=== PATIENT | female | born 1945 | race Caucasian/White ===

== ENCOUNTER 2021-01-22 14:31 | Inpatient (IN) | payer MEDICARE, SELFPAY ==
[2021-01-22] VITALS (8 sets, daily range): BP systolic 157–189; BP diastolic 73–99; PULSE 55–60; RESP 14–17; TEMP 36.2–36.9; O2SAT 97–99; BMI 27.4; BMI 27.6
--- NOTE | 2021-01-22 14:46 | PC.NURSE ---
provider spoke with pt in waiting room. pt states she is having constant chest tightness and a BAI. Ming RUGGIERO asked me to call for her a room in the ER. pt taken to room 7 and transferred to Sharla Lechuga.
--- NOTE | 2021-01-22 14:50 | ECG_ITS ---
APPROVED REPORT Exam: Resting ECG HR:58 bpm ECG Measurements Heart Rate 58 AXES IN 162 P 46 QRSd 84 QRS 8 QT 496 T 89 QTc 486 Conclusion Sinus bradycardia with premature atrial complexes Prolonged QT Abnormal ECG Electronically signed by : Davonte Morataya, 01/23/2021 07:27:21
--- NOTE | 2021-01-22 15:01 | HMH.EDGENADL ---
ED Disposition Clinical Impression: Non-STEMI (non-ST elevated myocardial infarction) Disposition: Admitted As Inpatient Condition on Discharge: Good - Critical Care Critical Care Time: No Attestation: On 01/22/21, the high probability of a clinically significant, sudden or life threatening deterioration of the following system(s) required my full and direct attention, intervention and personal management. The time I documented below is in addition to time spent performing reported procedures but includes the following listed in this critical care notation. Medical Decision Making - Jose Inquiry Pt receiving controlled substance: No Vital Signs: 01/22/21 14:56 01/22/21 15:00 01/22/21 15:31 Temperature 97.2 F L Temperature Source Oral Pulse Rate 59 L Pulse Rate [Right Radial] 59 L Respiratory Rate 16 16 14 Blood Pressure 184/89 H 175/74 H Blood Pressure [Right Arm] 189/89 H Blood Pressure Mean 123 129 Blood Pressure Mean [Right Arm] 122 Blood Pressure Source [Right Arm] Automatic Cuff Blood Pressure Position [Right Arm] Sitting 02 Sat by Pulse Oximetry 97 97 Oxygen Delivery Method Room Air Room Air 01/22/21 16:06 Temperature Temperature Source Pulse Rate 55 L Pulse Rate [Right Radial] Respiratory Rate 14 Blood Pressure 183/95 H Blood Pressure [Right Arm] Blood Pressure Mean 124 Blood Pressure Mean [Right Arm] Blood Pressure Source [Right Arm] Blood Pressure Position [Right Arm] 02 Sat by Pulse Oximetry Oxygen Delivery Method - Lab Data Lab Results 01/22/21 14:58: WBC 6.2, RBC 4.60, Hgb 13.8, Hct 40.8, MCV 88.6, MCH 30.0, MCHC 33.8, RDW 14.0, Plt Count 180, MPV 8.8, Neut % (Auto) 78.2, Lymph % (Auto) 12.3, [place] % (Auto) 7.8, Eos % (Auto) 1.4, Baso % (Auto) 0.2, Neut # (Auto) 4.9, Lymph # (Auto) 0.8, [place] # (Auto) 0.5, Eos # (Auto) 0.1, Baso # (Auto) 0.0 01/22/21 14:58: Sodium 141, Potassium 3.7, Chloride 104, Carbon Dioxide 27, Anion Gap 13.7, BUN 9, Creatinine 0.60, Estimated Creat Clear 54, Estimated GFR 97, Est GFR ( Amer) 117, Glucose 255 H, Calcium 9.3, Troponin I 7.88 H 01/22/21 15:35: SARS-CoV-2 (PCR) Not detected, Influenza A Untype (PCR) Not detected, Influenza Type B (PCR) Not detected Result diagrams: 01/22/21 14:58 01/22/21 14:58 Orders (Tests/Meds): ED MEDICATIONS Generic Name Dose Route Start Last Admin Trade Name Freq PRN Reason Stop Dose Admin Acetaminophen 650 mg 01/22/21 16:09 Acetaminophen 325mg Tab PO 02/21/21 16:08 Q4HP PRN Fever or Mild Pain Enoxaparin Sodium 75 mg 01/23/21 06:00 Enoxaparin 80mg/0.8ml Syringe 1 mg/kg (75 mg) 02/22/21 05:59 SQ Q12H [facility] Insulin Human Lispro 0 unit 01/22/21 16:30 01/22/21 17:44 Humalog 100 Units/Ml 3ml Vial (Ssi) SQ 02/21/21 16:29 2 unit ACHS [facility] Administration Protocol Lisinopril 5 mg 01/23/21 09:00 Lisinopril 5mg Tablet PO 02/22/21 08:59 DAILY [facility] Nitroglycerin 1 gm 01/22/21 22:00 Nitroglycerin 1 Gm Ointment TD 02/21/21 15:59 Q6H [facility] Non-Formulary Medication 0.5 mg 01/23/21 09:00 Fingolimod Hcl [Gilenya] PO 02/22/21 08:59 DAILY [facility] Ondansetron HCl 4 mg 01/22/21 16:09 Ondansetron 4mg/2ml Vial IV 02/21/21 16:08 Q8HP PRN Nausea Discontinued Medications Generic Name Dose Route Start Last Admin Trade Name Freq PRN Reason Stop Dose Admin Aspirin 324 mg 01/22/21 15:06 01/22/21 15:09 Aspirin 81mg Chewable Tablet PO 01/22/21 15:07 324 mg ONCE ONE Administration Enoxaparin Sodium 75 mg 01/22/21 15:45 01/22/21 15:58 Enoxaparin 100mg/Ml Syringe 1 mg/kg (75 mg) 01/22/21 21:00 75 mg SQ Administration Q12H [facility] Enoxaparin Sodium 75 mg 01/23/21 06:00 Enoxaparin 80mg/0.8ml Syringe 1 mg/kg (75 mg) 02/22/21 05:59 SQ Q12H [facility] Nitroglycerin 1 gm 01/22/21 16:00 01/22/21 15:59 Nitroglycerin 1 Gm Ointment TD 02/21/21 15:59 1 gm Q6H [facility] Administration
--- NOTE | 2021-01-22 15:02 | PC.NURSE ---
JAKE HALE speaking with Dr. Meadows.
--- NOTE | 2021-01-22 15:03 | XR_ITS ---
PROCEDURE: XR CHEST PORTABLE CLINICAL HISTORY: chest pain COMPARISON: No exams were available for comparison FINDINGS: The cardiomediastinal silhouette and pulmonary vascularity are within normal limits. The lungs are clear without infiltrates, suspicious nodules, or pleural effusions. Surgical clips are present in the left axilla. No acute bony findings. IMPRESSION: No acute findings. Dictated by: Josue Up MD 01/22/2021 15:27 Josue Up MD in [facility] 01/22/2021 15:27
[2021-01-22 15:12] LABS: Chloride 104 mmol/L (98-107); Potassium 3.7 mmoL/L (3.5-5.1); Sodium 141 mmol/L (136-145)
[2021-01-22 15:15] LABS: Anion Gap 13.7 mEq/L (5-15); Blood Urea Nitrogen 9 mg/dl (7-17); Calcium 9.3 mg/dl (8.4-10.2); Carbon Dioxide 27 mmol/L (22.0-30.0); Creatinine Clearance Estimated 54 mL/min (50-200); Estimated Glomerular Filt Rate 97 ml/min (>60); GFR (African American) 117 ML/MIN (>60); Glucose 255 mg/dl (74-100)
[2021-01-22 15:29] LABS: Basophils % 0.2 % (0.1-2.0); Eosinophils # 0.1 K/mm3 (0.0-0.4); Eosinophils % 1.4 % (0.1-12.0); Hematocrit 40.8 % (37.0-47.0); Hemoglobin 13.8 g/dL (12.2-16.2); Lymphocytes # 0.8 K/mm3 (0.7-4.5); Lymphocytes % 12.3 % (10-50); Mean Corpuscular HGB Conc 33.8 g/dL (31.8-35.4); Mean Corpuscular Volume 88.6 fl (81-99); Mean Platelet Volume 8.8 fl (7.4-10.4); Monocytes # 0.5 K/mm3 (0.1-1.0); Monocytes % 7.8 % (1.7-9.3); Neutrophils # 4.9 K/mm3 (1.8-7.8); Neutrophils % 78.2 % (37.0-80.0); Platelet Count 180 K/mm3 (142-424); Troponin I 7.88 ng/ml (0.00-0.034); White Blood Count 6.2 K/mm3 (4.8-10.8)
--- NOTE | 2021-01-22 15:29 | PC.NURSE ---
Critical trop 7.88 called at this time per lab, read back and verified with mariano padilla.
--- NOTE | 2021-01-22 15:31 | PC.NURSE ---
Dr. vázquez paged at this time.
--- NOTE | 2021-01-22 15:35 | PC.NURSE ---
Calling Dr. Garcia office
--- NOTE | 2021-01-22 15:49 | PC.NURSE ---
speaking with Dr. Garcia
[2021-01-22 15:54] LABS: Coronavirus 19, PCR Not Detected (NotDetected); Influenza A, PCR Not Detected (NotDetected); Influenza B, PCR Not Detected (NotDetected)
--- NOTE | 2021-01-22 15:54 | CA_ITS ---
APPROVED REPORT EXAM: Comprehensive 2D, Doppler, and color-flow Echocardiogram Wrapper Layer: Christi Rodriguez RVT Ht: 5 ft 4 in Wt: 160lbs BSA: 1.78 BP: 189/89 mmHg Indications: nstemi,htn,dm,chf,elevated trop,fatigue 2D Dimensions IVSd 1.24 cm F: 0.6-1.0 LVEF (Visual) 50.30 % PWd 0.62 cm F: 0.6 - 1.0 LA Volume 58.60 mL LVDd 4.19 cm F: 3.9 - 5.3 LA Volume Index 32.92 mL/m2 (M/F) 16-34 LVDs 3.13 cm F: 2.2 - 3.5 LVOT 2.36 cm (M/F) 1.5-2.5 M-Mode Dimensions LA Diam 4.90 cm (1.9-4.0) Ao Diam 3.16 cm (2.0-3.7) TAPSE 2.14 (<1.7) LV Diastology E Decel Time 117.00 (160-240 msec) E/A Ratio 0.9 MED E' 5.10 (< 7 cm/sec) E'/MED E' Ratio 13.78 (>14) LAT E' 4.70 (<10 cm/sec) E/LAT E' Ratio 14.96 (>14) Aortic Valve AO Peak GR. 4.20 mmHg AO VTI 28.94 (18-25 cm) Mitral Valve MV E Max Anjel. 70.00 (40-130 cm/s) MV A Velocity 75.00 (40-130 cm/s) E/A Ratio 0.94 MV Decel. Time 117.00 (160-240 ms) MV PHT 34.00 ms Pulmonary Valve PV Peak Velocity 66.00 (50-150 cm/s) Tricuspid Valve TR P. Velocity 386.00 cm/s RAP Estimate 10.00 mmHg RVSP 69.60 mmHg Left Ventricle Left atrium is mildly enlarged, left ventricle is normal size, mild concentric left ventricular hypertrophy, visually estimated ejection fraction 50% with moderate hypokinesis involving the basal septum and inferior basal wall. Grade 2 diastolic dysfunction seen with tissue Doppler evidence of raise left atrial pressure. Right Ventricle Right atrium and right ventricle mildly enlarged with normal contractility. Aortic Valve Aortic valve is minimally thickened and calcified without Doppler evidence of aortic stenosis or aortic insufficiency. Mitral Valve Mitral valve leaflets are minimally thickened, there is moderate mitral regurgitation. Tricuspid Valve Tricuspid valve grossly normal, there is mild tricuspid regurgitation, calculated right ventricular systolic pressure 69 mmHg. Pulmonic Valve Pulmonic valve is poorly visualized. Great Vessels Aortic root is normal size. Inferior vena cava is mildly dilated. Pericardium No significant pericardial effusion noted Conclusion 1. Biatrial enlargement, normal left ventricular size, mild concentric left ventricular hypertrophy, visually estimated ejection fraction 50% with segmental wall motion abnormality described above, grade 2 diastolic dysfunction seen with tissue Doppler evidence of raise left atrial pressure. 2. Moderate mitral and mild tricuspid regurgitation, calculated right ventricular systolic pressure 69 mmHg. 3. Inferior vena cava is dilated, no significant pericardial effusion noted. Electronically signed by : Esteban Alejandro, 01/23/2021 09:06:46
--- NOTE | 2021-01-22 15:54 | PC.NURSE ---
Notified CV lab of echo
--- NOTE | 2021-01-22 16:03 | PC.NURSE ---
Notified registration of admission
--- NOTE | 2021-01-22 16:14 | PC.NURSE ---
CV lab staff at
--- NOTE | 2021-01-22 16:45 | PC.NURSE ---
report given to dorcas mcnulty rn on second floor at this time
[2021-01-22 17:53] LABS: POC Glucose,Bedside 164 (70-110)
--- NOTE | 2021-01-22 18:09 | PC.NURSE ---
PT IS AOX4, ABLE TO MAKE NEEDS KNOWN TO STAFF. PT FAMILY APPROACHED THIS RN STATING THAT HE BELIEVED THE PT WAS HAVING CHEST PAIN. THIS RN QUESTIONED PT AND SHE DENIED MULTIPLE TIMES THAT SHE WAS NOT HAVING CHEST PAIN.
[2021-01-22 18:48] LABS: Troponin I 7.49 ng/ml (0.00-0.034)
--- NOTE | 2021-01-22 18:52 | PC.NURSE ---
CRITICAL TROPONIN REPORTED FROM LAB. PT NAME AND VERIFIED. CRITICAL LAB REPORTED TO MD CLIFFORD. NO NEW ORDERS.
[2021-01-22 21:35] LABS: Troponin I 6.87 ng/ml (0.00-0.034)
[2021-01-23] VITALS (37 sets, daily range): BP systolic 112–173; BP diastolic 61–108; PULSE 53–130; RESP 15–22; TEMP 36.5–37.6; O2SAT 93–100; BMI 28.0
--- NOTE | 2021-01-23 | IR_ITS ---
APPROVED REPORT Patient Location: Inpatient [facility] Bods Developer: YARY Baer RT (R) PROCEDURES Left heart catheterization Left ventriculogram Selective coronary angiogram Drug-eluting stent deployment to the proximal and mid LAD in a contiguous manner Angioplasty of the large first diagonal artery INDICATION Acute non-ST elevation myocardial infarction, Coronary artery disease Informed consent was obtained prior to the procedure. COMPLICATIONS None Estimated Blood Loss: Less than 10 mls TECHNIQUE One percent lidocaine used to anesthetize the right anterior aspect of the wrist. The right radial artery was accessed via the Seldinger technique. A 6 [place]bourg[place] sheath was placed in the right radial artery. 2.5 mg of verapamil, 800 mcg of nitroglycerin, 1mg Lidocaine and 5000 U Heparin were given through the arterial sheath. The [place] catheter was also used to perform left heart catheterization, left ventriculogram and selective coronary angiogram. At the end of the diagnostic angiogram therapeutic heparin was administered giving a therapeutic ACT. A Choice PT extra-support wire was placed in the first diagonal artery and a Choice PT extra-support wire was placed in the distal LAD. A 2.5 x 12 mm balloon was advanced and upon inflation that watermelon seated backward. After the balloon was deployed it would not make it beyond the severe stenosis again therefore a fresh 2.5 x 20 mm balloon was then advanced. The same watermelon seeding event occurred with the balloon receding backward. Once again the balloon would not or could not be advanced therefore a another fresh 2.5 x 12 mm balloon was then advanced this time distal to the first diagonal artery. The initial inflations were proximal to the first diagonal artery in an attempt to spare crossing this vessel however it was apparent this would not be the case therefore the diagonal artery was crossed/jailed. A guide liner was in place in order to provide additional support. A 2.5 x 12 mm resolute Royal stent was placed across the large diagonal artery and deployed at 22 becca reducing the critical stenosis. An additional 3 mm x 26 mm resolute Royal stent was then deployed at 22 becca proximal to the stent yet still overlapping the first stent placed. Excellent angiographic results were obtained. The wire was pulled back out of the LAD and placed into the first diagonal artery where a 2 mm x 12 mm noncompliant balloon was deployed at 20 becca for 1 minute opening the struts and restoring excellent angiographic appearance to the first diagonal artery. At the end of the procedure the apparatus was removed the sheath was removed good hemostasis was achieved using TR banding patient was transferred to the postop holding in stable condition. To me to flow was present at the beginning of the procedure with KAT-3 flow at the end of the procedure. Following revascularization of the LAD patient converted back into sinus rhythm ANGIOGRAPHIC RESULTS The left main artery Normal The left anterior descending artery Has a proximal calcified concentric 90% stenosis. There is an additional 30% mid LAD stenosis.. A large first diagonal artery has an ostial 30% calcified stenosis The circumflex artery Gives rise to a moderate to large ramus intermedius which has mild mid vessel 10% stenosis along a tortuous bend. The circumflex artery itself is nondominant with mild mid vessel 10 to 20% stenosis The right coronary artery Is a large dominant vessel with proximal 30% stenosis mid vessel 30 and 40% stenoses. Posterior lateral branch has mid vessel 30% stenosis with a posterior descending artery has proximal 10 to 20% stenosis The QUEEN ventriculogram reveals Dilated ventricle with lar
[2021-01-23 01:39] LABS: POC Glucose,Bedside 210 (70-110)
--- NOTE | 2021-01-23 02:14 | ECG_ITS ---
APPROVED REPORT Exam: Resting ECG HR:132 bpm ECG Measurements Heart Rate 132 AXES QRSd 88 QRS -1 QT 288 T 89 QTc 426 Conclusion Atrial fibrillation with rapid ventricular response ST & T wave abnormality, consider lateral ischemia or digitalis effect Abnormal ECG Electronically signed by : Davonte Morataya, 01/23/2021 07:27:14
--- NOTE | 2021-01-23 04:02 | PC.NURSE ---
Care assumed by this nurse at 0254. Pt is currently resting in bed. Amiodarone bolus and continuous infusion ordered by MD Meadows after EKG was obtained and pt noted to be Afib w/ RVR. EKG read by MD Ceballos. Orders were carried out. Amiodarone is currently infusing @ 1mg/min, 33.3 ml/hr. Nightwatch, classification clerk pharmacy was consulted. Pt remains in afib at this time. BP is 140/74. HR ranges from 100s-120s. Pt remains on RA with O2 sats in upper 90s. Pt is NPO for heart cath in AM. Family at bedside. Will continue to monitor.
[2021-01-23 05:52] LABS: POC Glucose,Bedside 197 (70-110)
[2021-01-23 07:03] LABS: Basophils # 0.1 K/mm3 (0-0.2); Basophils % 0.8 % (0.1-2.0); Eosinophils # 0.1 K/mm3 (0.0-0.4); Eosinophils % 1.5 % (0.1-12.0); Hemoglobin 13.1 g/dL (12.2-16.2); Lymphocytes # 1.1 K/mm3 (0.7-4.5); Lymphocytes % 12.8 % (10-50); Mean Corpuscular HGB Conc 32.8 g/dL (31.8-35.4); Mean Corpuscular Hemoglobin 29.1 pg (27.0-31.2); Mean Corpuscular Volume 88.7 fl (81-99); Mean Platelet Volume 8.9 fl (7.4-10.4); Monocytes # 0.7 K/mm3 (0.1-1.0); Monocytes % 7.6 % (1.7-9.3); Neutrophils # 6.9 K/mm3 (1.8-7.8); Neutrophils % 77.4 % (37.0-80.0); Platelet Count 184 K/mm3 (142-424); Red Blood Count 4.51 M/mm3 (4.20-5.40); Red Cell Distribution Width 14.2 % (11.5-17.5); White Blood Count 8.9 K/mm3 (4.8-10.8)
[2021-01-23 07:09] LABS: Blood Urea Nitrogen 3 mg/dl (7-17); Calcium 9.1 mg/dl (8.4-10.2); Carbon Dioxide 27 mmol/L (22.0-30.0); Chloride 104 mmol/L (98-107); Creatinine Clearance Estimated 55 mL/min (50-200); Estimated Glomerular Filt Rate 97 ml/min (>60); GFR (African American) 117 ML/MIN (>60); Glucose 219 mg/dl (74-100); Sodium 139 mmol/L (136-145)
--- NOTE | 2021-01-23 08:16 | HMH.HP ---
*Admission Date: 01/22/21 *Chief complaint: Chest pain *History of present illness: 75-year-old female with history of diabetes presented to the emergency department with her family with episodes of chest tightness and reports that the patient seemed weak and fatigued. Patient is a reluctant historian as she does not want to be in the hospital. Her sons are at bedside. They noticed something was wrong initially by speaking with the patient on January 20 and on January 21 had a chance to be around the patient and noted she was weaker and fatigued. She apparently at some point and mentions some chest tightness. She was brought to the ER on January 22 in the afternoon. Patient had abnormal EKG with troponin of seven. The ER physician contacted cardiology service and patient was admitted on Brilinta and Lovenox with plan for left heart catheterization this morning. Overnight patient developed atrial fibrillation with rapid ventricular response. Dr. Meadows was contacted and patient was placed on an amiodarone drip. Echocardiogram was performed late yesterday afternoon with preliminary reading of ejection fraction of 50 to 55%. Past medical history significant for diabetes which has been controlled and multiple sclerosis. [facility] History I have reviewed the patient's past medical history: Yes Medical History: Reports:: Diabetes Mellitus Type 2 *Have you ever received a pneumonia vaccine?: No *Have you received a flu vaccine this season?: No Other Surgeries: Yes: Other (Multiple sclerosis) - *Social History Last grade of school completed: Advanced degree Smoking Status: Never smoker Alcohol Intake: never Substance Use Type: denies use *Occupational Status:: retired Housing: house Household Members: none *Travel in the last 8 weeks: None Family Hx:: Non-contributory Review of Systems - Constitutional Denies body ache(s) - Eyes Denies blurry vision - ENT Denies abnormal hearing - *Cardiovascular Reports chest pain at rest - *Respiratory Reports shortness of breath with activity - *Gastrointestinal Denies belching - *Genitourinary Denies painful urination - *Musculoskeletal Denies joint pain - *Neurologic Reports abnormal walking, Reports weakness Meds Home Medications Medication Instructions Recorded Confirmed Type Fingolimod HCl [Gilenya] 0.5 mg PO DAILY 01/22/21 01/22/21 History Glimepiride 1 mg PO DAILY 01/22/21 01/22/21 History lisinopriL [Lisinopril] 5 mg PO DAILY 01/22/21 01/22/21 History Allergies Allergy/AdvReac Type Severity Reaction Status Date / Time No Known Allergies Allergy Unverified 01/22/21 14:56 Exam Vital signs and Labs for Last 24 Hours: Temp Pulse Resp BP Pulse Ox 98.3 F 116 H 20 133/72 93 L 01/23/21 08:00 01/23/21 06:00 01/23/21 06:00 01/23/21 06:00 01/23/21 06:00 Laboratory Results - last 24 hr 01/22/21 14:58: WBC 6.2, RBC 4.60, Hgb 13.8, Hct 40.8, MCV 88.6, MCH 30.0, MCHC 33.8, RDW 14.0, Plt Count 180, MPV 8.8, Neut % (Auto) 78.2, Lymph % (Auto) 12.3, [place] % (Auto) 7.8, Eos % (Auto) 1.4, Baso % (Auto) 0.2, Neut # (Auto) 4.9, Lymph # (Auto) 0.8, [place] # (Auto) 0.5, Eos # (Auto) 0.1, Baso # (Auto) 0.0 01/22/21 14:58: Sodium 141, Potassium 3.7, Chloride 104, Carbon Dioxide 27, Anion Gap 13.7, BUN 9, Creatinine 0.60, Estimated Creat Clear 54, Estimated GFR 97, Est GFR ( Amer) 117, Glucose 255 H, Calcium 9.3, Troponin I 7.88 H 01/22/21 15:35: SARS-CoV-2 (PCR) Not detected, Influenza A Untype (PCR) Not detected, Influenza Type B (PCR) Not detected 01/22/21 17:39: POC Glucose 164 H 01/22/21 18:15: Troponin I 7.49 H 01/22/21 20:10: POC Glucose 210 H 01/22/21 21:09: Troponin I 6.87 H 01/23/21 05:33: POC Glucose 197 H 01/23/21 06:42: WBC 8.9 D, RBC 4.51, Hgb 13.1, Hct 40.0, MCV 88.7, MCH 29.1, MCHC 32.8, RDW 14.2, Plt Count 184, MPV 8.9, Neut % (Auto) 77.4, Lymph % (Auto) 12.8, [place] % (Auto) 7.6, Eos % (Auto) 1.5, Baso % (Auto) 0.8, Neut # (Auto) 6.9, Lymph # (Auto)
--- NOTE | 2021-01-23 09:00 | PC.NURSE ---
Amio gtt decreased to 0.5mg @ 0900
--- NOTE | 2021-01-23 09:05 | HMH.PHAVTE ---
[facility] Pharmacy VTE Monitoring - Patient Demographics Admission date: 01/23/21 Report Date: 01/23/21 Time: 09:05 Allergies/Adverse Reactions: Patient Allergies No Known Allergies Allergy (Unverified 01/22/21 14:56) Height: 1.63 m Weight: 74.531 kg Patient Problems: Current Active Problems Non-STEMI (non-ST elevated myocardial infarction) (Acute) Atrial fibrillation with RVR (Acute) Diabetes mellitus type 2 in nonobese (Acute) - VTE Risk Labs: VTE Related Lab Results Hgb 13.1 g/dL (12.2-16.2) 01/23/21 06:42 Hct 40.0 % (37.0-47.0) 01/23/21 06:42 Plt Count 184 K/mm3 (142-424) 01/23/21 06:42 BUN 3 mg/dl (7-17) L D 01/23/21 06:42 Creatinine 0.60 mg/dl (0.52-1.04) 01/23/21 06:42 Estimated Creat Clear 55 mL/min (50-200) 01/23/21 06:42 - Prophylaxis Types of VTE Prophylaxis: TEDS Knee High Pharmacologic Type: Other (MERVIN HOSE ORDERED, XARELTO TO START THIS EVENING)
--- NOTE | 2021-01-23 09:49 | PC.NURSE ---
pt to cath lab manager with Ulises Pires RN via wheelchair. Amio gtt @ 0.5mg/hr continues via PIV
[2021-01-23 10:57] LABS: CATHL Activated Clotting Time 292 SEC (74-125)
--- NOTE | 2021-01-23 11:27 | PC.NURSE ---
received report from Ulises Pires RN
--- NOTE | 2021-01-23 11:35 | PC.NURSE ---
pt back from cathlab. Right radial site CDI with radial band in place. Pt is answering questions appropriately but continues to be drowsy. Sinus radha on tele.
[2021-01-23 12:10] LABS: POC Glucose,Bedside 187 (70-110)
--- NOTE | 2021-01-23 12:32 | PC.NURSE ---
Sinus radha with rate 48-56. Amio gtt currently @ 0.5mg/hr. Contacted Dr. Meadows, who ordered to continue Amio gtt.
[2021-01-23 17:32] LABS: POC Glucose,Bedside 227 (70-110)
--- NOTE | 2021-01-23 17:34 | PC.NURSE ---
Addendum entered by Alejandra Valdez RN 01/24/21 08:12: should read: pt is NOW back in Afib Original Note: pt is not back in Afib. Tele strip printed out and is on the chart. Amio gtt continues @ 0.5mg/hr and will be complete @ 0300.
--- NOTE | 2021-01-23 18:39 | PC.NURSE ---
updated Dr. Meadows that pt is now back in Afib rate 120s with BP 160/106 (128). New orders received for the following: Amiodarone 400mg BID po, Digoxin 0.5mg IVP x 1 dose then 0.125mg po daily and to give po dose tonight. [facility]
[2021-01-23 22:54] LABS: POC Glucose,Bedside 198 (70-110)
[2021-01-24] VITALS (16 sets, daily range): BP systolic 106–155; BP diastolic 58–88; PULSE 59–110; RESP 15–24; TEMP 36.6–37; O2SAT 93–98; BMI 28.5
[2021-01-24 06:15] LABS: Basophils # 0.1 K/mm3 (0-0.2); Basophils % 0.6 % (0.1-2.0); Eosinophils # 0.1 K/mm3 (0.0-0.4); Eosinophils % 1.3 % (0.1-12.0); Hemoglobin 13.8 g/dL (12.2-16.2); Lymphocytes # 1.2 K/mm3 (0.7-4.5); Lymphocytes % 13.9 % (10-50); Mean Corpuscular HGB Conc 33.5 g/dL (31.8-35.4); Mean Corpuscular Hemoglobin 29.3 pg (27.0-31.2); Mean Corpuscular Volume 87.4 fl (81-99); Mean Platelet Volume 8.8 fl (7.4-10.4); Monocytes # 0.6 K/mm3 (0.1-1.0); Monocytes % 6.8 % (1.7-9.3); Neutrophils # 6.9 K/mm3 (1.8-7.8); Neutrophils % 77.5 % (37.0-80.0); Platelet Count 174 K/mm3 (142-424); Red Blood Count 4.69 M/mm3 (4.20-5.40); Red Cell Distribution Width 14.3 % (11.5-17.5); White Blood Count 8.9 K/mm3 (4.8-10.8)
[2021-01-24 06:22] LABS: Anion Gap 10.9 mEq/L (5-15); Blood Urea Nitrogen 5 mg/dl (7-17); Calcium 9.1 mg/dl (8.4-10.2); Carbon Dioxide 26 mmol/L (22.0-30.0); Chloride 105 mmol/L (98-107); Creatinine Clearance Estimated 56 mL/min (50-200); Estimated Glomerular Filt Rate 97 ml/min (>60); GFR (African American) 117 ML/MIN (>60); Glucose 214 mg/dl (74-100); Potassium 3.9 mmoL/L (3.5-5.1); Sodium 138 mmol/L (136-145)
[2021-01-24 06:39] LABS: POC Glucose,Bedside 201 (70-110)
--- NOTE | 2021-01-24 06:43 | PC.NURSE ---
Ambulates to the bathroom with assist x1 with walker. She is a fall risk with poor balance at times. She has been wearing a brief from home. She has used the call light to go to the bathroom but has been incontinent of urine each time before going to the bathroom. Her urine has a strong odor. She has denied pain. Pulse has ranged between 90-130s t/o the night but more frequently in 110-120 range. She has been in and out of afib with occasional episodes of aflutter. Amiodarone gtt d/c at 0300. Cath site DSG is C/D/I with no bruising at site.
--- NOTE | 2021-01-24 07:58 | P.PN_ITS ---
Internal Medicine - PN: Subj *Date: 01/24/21 *Time: 07:58 Interval history: Patient underwent successful stenting of the LAD yesterday. She remains in atrial fibrillation. She has completed an amiodarone drip and has been transitioned to oral amiodarone and was given additional IV and oral digoxin for her atrial fibrillation. She denies palpitations, chest pain, shortness of breath. She believes her weakness is at its baseline Exam Vital signs and Labs for Last 24 Hours: Temp Pulse Resp BP Pulse Ox 97.7 F 110 H 20 117/88 94 L 01/23/21 20:00 01/24/21 06:00 01/23/21 18:05 01/24/21 06:00 01/24/21 06:00 Laboratory Results - last 24 hr 01/23/21 06:42: Hemoglobin A1c 8.0 H 01/23/21 10:33: Activated Clotting Time 292 H* 01/23/21 11:55: POC Glucose 187 H 01/23/21 16:52: POC Glucose 227 H 01/23/21 21:35: POC Glucose 198 H 01/24/21 05:55: Sodium 138, Potassium 3.9, Chloride 105, Carbon Dioxide 26, Anion Gap 10.9, BUN 5 L D, Creatinine 0.60, Estimated Creat Clear 56, Estimated GFR 97, Est GFR ( Amer) 117, Glucose 214 H, Calcium 9.1 01/24/21 05:55: WBC 8.9, RBC 4.69, Hgb 13.8, Hct 41.0, MCV 87.4, MCH 29.3, MCHC 33.5, RDW 14.3, Plt Count 174, MPV 8.8, Neut % (Auto) 77.5, Lymph % (Auto) 13.9, [place] % (Auto) 6.8, Eos % (Auto) 1.3, Baso % (Auto) 0.6, Neut # (Auto) 6.9, Lymph # (Auto) 1.2, [place] # (Auto) 0.6, Eos # (Auto) 0.1, Baso # (Auto) 0.1 01/24/21 06:26: POC Glucose 201 H I & O for Last 24 hours: Intake & Output 01/21/21 01/22/21 01/23/21 01/24/21 11:59 11:59 11:59 11:59 Intake Total 415 / 415 1095 / 1095 Balance 415 / 415 1095 / 1095 Weight 164 lb 5 oz 167 lb - Constitutional no acute distress - *Routine Respiratory Exam Present: CTA bilaterally - *Routine Cardiovascular Exam Present: irregularly irregular - *Routine Extremities Exam Absent: edema Assessment and Plan (1) Non-STEMI (non-ST elevated myocardial infarction) Status: Acute Category: Medical Code(s): I21.4 - Non-ST elevation (NSTEMI) myocardial infarction (2) Atrial fibrillation with RVR Status: Acute Category: Medical Code(s): I48.91 - Unspecified atrial fibrillation (3) Diabetes mellitus type 2 in nonobese Status: Acute Category: Medical Code(s): E11.9 - Type 2 diabetes mellitus without complications - Assessment and plan all Dx Assessment and Plan for all problems:: 1. Continue dual antiplatelet therapy. Start Entresto this evening 2. Continue amiodarone and digoxin per cardiology service
[2021-01-24 11:39] LABS: POC Glucose,Bedside 223 (70-110)
--- NOTE | 2021-01-24 11:48 | PC.NURSE ---
pt ambulated with walker and standby assist to bathroom. No issues noted.
--- NOTE | 2021-01-24 16:10 | PC.NURSE ---
Pt in and out of Afib, NSR with inverted T waves, and sinus radha.
[2021-01-24 17:01] LABS: POC Glucose,Bedside 216 (70-110)
[2021-01-24 20:24] LABS: POC Glucose,Bedside 227 (70-110)
[2021-01-25] VITALS (7 sets, daily range): BP systolic 118–163; BP diastolic 58–73; PULSE 60–71; RESP 16–28; TEMP 36.6–36.9; O2SAT 91–98; BMI 29.0
[2021-01-25 06:32] LABS: POC Glucose,Bedside 200 (70-110)
--- NOTE | 2021-01-25 07:42 | HMH.ACPN2 ---
Internal Medicine - PN: Subj *Date: 01/25/21 *Time: 07:42 Interval history: Patient has no complaints this morning. Nursing staff reports patient has done well and showed no signs of dyspnea. Patient has been in sinus rhythm overnight. Exam Vital signs and Labs for Last 24 Hours: Temp Pulse Resp BP Pulse Ox 98.5 F 62 28 H 153/71 H 92 L 01/25/21 04:00 01/25/21 06:00 01/25/21 00:00 01/25/21 06:00 01/25/21 06:00 Laboratory Results - last 24 hr 01/24/21 11:32: POC Glucose 223 H 01/24/21 16:54: POC Glucose 216 H 01/24/21 20:11: POC Glucose 227 H 01/25/21 06:01: POC Glucose 200 H I & O for Last 24 hours: Intake & Output 01/22/21 01/23/21 01/24/21 01/25/21 11:59 11:59 11:59 11:59 Intake Total 415 / 415 1455 / 1455 720 / 720 Balance 415 / 415 1455 / 1455 720 / 720 Weight 164 lb 5 oz 167 lb 170 lb 7 oz - Constitutional no acute distress - *Routine Respiratory Exam Present: CTA bilaterally - *Routine Cardiovascular Exam Present: RRR - *Routine Abdominal Exam Present: soft, normoactive bowel sounds. Absent: tenderness - *Routine Extremities Exam Absent: cyanosis, clubbing, edema Assessment and Plan (1) Non-STEMI (non-ST elevated myocardial infarction) Status: Acute Category: Medical Code(s): I21.4 - Non-ST elevation (NSTEMI) myocardial infarction (2) Atrial fibrillation with RVR Status: Acute Category: Medical Code(s): I48.91 - Unspecified atrial fibrillation (3) Diabetes mellitus type 2 in nonobese Status: Acute Category: Medical Code(s): E11.9 - Type 2 diabetes mellitus without complications - Assessment and plan all Dx Assessment and Plan for all problems:: 1. Await cardiology evaluation this morning with possible discharge this afternoon.
--- NOTE | 2021-01-25 09:35 | PC.NURSE ---
Dr. Garcia made aware that cardiology will not be rounding on patients today.
[2021-01-25 10:45] LABS: POC Glucose,Bedside 265 (70-110)
--- NOTE | 2021-01-25 13:15 | PC.NURSE ---
Discharge education reviewed w/ pt and son. IV's removed, as well as dressing to (R) radial site. Site is clean, dry, bandaid plaed over site per pt's request. Outpatient order form given to pt upon DC for labs to be drawn prior to appointment w/ cardiology. Pt is aware that they will need to call tomorrow to make follow-up w/ Dr. Meadows's office.
--- NOTE | 2021-01-25 13:18 | HMH.PHACLD ---
Fior Jean-Baptiste Cifuentes has received discharge medication counseling on the following medications: PATIENT IS BEING DISCHARGED WITH ASPIRIN 81 MG CHEWABLE DAILY, ATORVASTATIN 40 MG HS, ENTRESTO 24/26 MG BID, AND BRILINTA 90 MG BID. BETA MONET NOT STARTED AT THIS TIME BY MD HR IS RUNNING LOW.
--- NOTE | 2021-01-27 07:14 | HMH.DCSUM ---
General - General Admission date:: 01/22/21 Discharge date: 01/25/21 HPI HPI: 75-year-old female with history of diabetes presented to the emergency department with her family with episodes of chest tightness and reports that the patient seemed weak and fatigued. Patient is a reluctant historian as she does not want to be in the hospital. Her sons are at bedside. They noticed something was wrong initially by speaking with the patient on January 20 and on January 21 had a chance to be around the patient and noted she was weaker and fatigued. She apparently at some point and mentions some chest tightness. She was brought to the ER on January 22 in the afternoon. Patient had abnormal EKG with troponin of seven. The ER physician contacted cardiology service and patient was admitted on Brilinta and Lovenox with plan for left heart catheterization this morning. Overnight patient developed atrial fibrillation with rapid ventricular response. Dr. Meadows was contacted and patient was placed on an amiodarone drip. Echocardiogram was performed late yesterday afternoon with preliminary reading of ejection fraction of 50 to 55%. Past medical history significant for diabetes which has been controlled and multiple sclerosis. Hospital Course Hospital Course: Patient was admitted with diagnosis of non-ST elevation OR. The following day on January 23 she was taken to the [facility] with results as follows: ANGIOGRAPHIC RESULTS The left main artery Normal The left anterior descending artery Has a proximal calcified concentric 90% stenosis. There is an additional 30% mid LAD stenosis.. A large first diagonal artery has an ostial 30% calcified stenosis The circumflex artery Gives rise to a moderate to large ramus intermedius which has mild mid vessel 10% stenosis along a tortuous bend. The circumflex artery itself is nondominant with mild mid vessel 10 to 20% stenosis The right coronary artery Is a large dominant vessel with proximal 30% stenosis mid vessel 30 and 40% stenoses. Posterior lateral branch has mid vessel 30% stenosis with a posterior descending artery has proximal 10 to 20% stenosis The QUEEN ventriculogram reveals Dilated ventricle with large anterior apical defect. Estimated ejection fraction 30% The left ventricular end-diastolic pressure 15 to 20 mmHg IMPRESSION Critical proximal LAD disease as described above Successful stenting of the proximal to mid LAD in a contiguous manner using 2 drug-eluting overlapping stents Successful angioplasty large first diagonal artery severe disease reduced to 0% with POBA Reduced ejection fraction with large regional wall motion abnormality Mildly elevated LVEDP PLAN 1. Brilinta 90 twice daily plus aspirin 81 mg daily 2. Continue with amiodarone IV load then convert to 200 mg p.o. twice daily for 2 weeks 3. Start Entresto followed by carvedilol as patient hemodynamically tolerates 4. Echocardiogram Monday morning to assess ejection fraction. If ejection fraction remains 35% or less it is recommended she wear a LifeVest 5. Avoidance of tobacco products 6. Cardiac rehabilitation 7. Risk factor modification 8. LDL less than 55 to be achieved by high intensity statin Echocardiogram results performed on the day of admission are as follows: Conclusion 1. Biatrial enlargement, normal left ventricular size, mild concentric left ventricular hypertrophy, visually estimated ejection fraction 50% with segmental wall motion abnormality described above, grade 2 diastolic dysfunction seen with tissue Doppler evidence of raise left atrial pressure. 2. Moderate mitral and mild tricuspid regurgitation, calculated right ventricular systolic pressure 69 mmHg. 3. Inferior vena cava is dilated, no significant pericardial effusion noted. After left heart catheterization patient tolerated activity with assistance. She had no need for supplemental oxygen. She denied chest pain. Tiff
== END 2021-01-25 13:19 | disposition home or self-care (01) | DRG 247 ==
LOC: UTC 14:37 → ER 14:47 → 2ND 16:23
PROVIDERS: Internal Medicine; Admitting Provider Family Medicine; Emergency Provider Emergency Medicine; PCP Family Medicine; Visit Provider Family Medicine
DX: I21.4 Non-ST elevation (NSTEMI) myocardial infarction (principal); I48.91 Unspecified atrial fibrillation; G35 Multiple sclerosis; E11.9 Type 2 diabetes mellitus without complications; Z79.4 Long term (current) use of insulin; I10 Essential (primary) hypertension
CPT/HCPCS: 36415; 71045; 80048; 82962; 83036; 84484; 85025; 85347; 92921; 92928; 93005; 93306; 93458; 96372; 99152; 99153; 99284; 99291; C1725; C1769; C1876; C9600; J0282; J1644; J2405; J7060; Q9967; U0003

== ENCOUNTER → 2021-04-07 10:09 | Outpatient (CLI) | payer MEDICARE, SELFPAY ==
[2021-04-07 11:25] LABS: Basophils % 0.6 % (0.1-2.0); Eosinophils # 0.2 K/mm3 (0.0-0.4); Eosinophils % 2.4 % (0.1-12.0); Hematocrit 35.8 % (37.0-47.0); Lymphocytes # 0.9 K/mm3 (0.7-4.5); Lymphocytes % 14.1 % (10-50); Mean Corpuscular HGB Conc 30.8 g/dL (31.8-35.4); Mean Corpuscular Hemoglobin 29.8 pg (27.0-31.2); Mean Corpuscular Volume 96.9 fl (81-99); Mean Platelet Volume 8.7 fl (7.4-10.4); Monocytes # 0.3 K/mm3 (0.1-1.0); Monocytes % 5.1 % (1.7-9.3); Neutrophils # 4.9 K/mm3 (1.8-7.8); Neutrophils % 77.8 % (37.0-80.0); Platelet Count 185 K/mm3 (142-424); Red Blood Count 3.69 M/mm3 (4.20-5.40); Red Cell Distribution Width 14.6 % (11.5-17.5); White Blood Count 6.3 K/mm3 (4.8-10.8)
[2021-04-07 12:36] LABS: Alanine Aminotransferase 23 U/L (12-78); Aspartate Amino Transferase 26 U/L (14-36); Bilirubin,Unconjugated 0.6 mg/dL (0.0-1.1)
[2021-04-07 12:37] LABS: Albumin Level 3.7 g/dl (3.5-5.0); Alkaline Phosphatase 78 U/L (38-126); Bilirubin,Direct 0.1 mg/dl (0.0-0.4); Bilirubin,Indirect 0.5 mg/dL (0.0-0.9); Bilirubin,Total 0.6 mg/dl (0.2-1.3); Total Protein,Serum 5.8 g/dl (6.3-8.2)
[2021-04-07 12:54] LABS: Free T4 (Free Thyroxine) 1.25 ng/dl (0.78-2.19)
== END ==
PROVIDERS: Visit Provider Physician Assistant
DX: E78.2 Mixed hyperlipidemia (principal); I25.10 Atherosclerotic heart disease of native coronary artery without angina pectoris; I34.0 Nonrheumatic mitral (valve) insufficiency; I48.0 Paroxysmal atrial fibrillation
CPT/HCPCS: 36415; 80076; 84439; 84443; 85025

== ENCOUNTER → 2022-01-13 07:01 | Outpatient (CLI) | payer MEDICARE, SELFPAY ==
--- NOTE | 2022-01-13 07:02 | NM_ITS ---
APPROVED REPORT Exam: Nuclear Stress Test Indication: CAD, H/O M.I., HTN, DM, HYPERLIPIDEMIA, C.P. Patient Location: Outpatient Stress Tech: Adali Decker [place] Tech:YARY Chavez RT(R)(N) Ht: 5 ft 4 in Wt: 143 lbs HR: 55 bpm BP: 139/41 mmHg BSA: 1.70 m2 TID: 1.04 BMI: 24.5 History: CAD, H/O M.I., HTN, DM, HYPERLIPIDEMIA, C.P. PT COULD NOT LAY ON STOMACH FOR PRONE IMAGES Procedure: Patient received a 0.4 mg of intravenous Lexiscan, resting heart rate 55 bpm, resting blood pressure 139/41 mmHg, with Lexiscan maximum heart rate achived was 82 bpm which is % of the maximum predicted heart rate and blood pressure was 139/41 mmHg. With Lexiscan, patient denied any complaint of chest pain. Electrocardiogram Resting electrocardiogram showed sinus rhythm, with Lexiscan less than 1.[address] segment depression noted from the baseline EKG. The EKG portion of the Lexiscan is nondiagnostic Cardiac Stress and Resting SPECT Images: Cardiac Stress and Resting SPECT images were obtained using technetium 99m Myoview 32.3 mCi stress and 9.95 mCi at rest. Gated SPECT analysis of segmental wall motion and calculation of the ejection fraction also done, prone images were not obtained. Cardiac stress and rest SPECT images show a fixed defect involving the anterior apical and posterior lateral wall consistent with area of myocardial scarring without significant sobeida-infarct ischemia, computer derived ejection fraction is 53% with moderate anterior apical and posterolateral wall hypokinesis, right ventricle is mildly enlarged with normal contractility. Conclusion: 1. The EKG portion of the Lexiscan is nondiagnostic. 2. Scintigraphic evidence of myocardial scarring involving the anterior apical and posterolateral wall, without significant sobeida-infarct ischemia, computer derived ejection fraction is 53% with segmental wall motion abnormality described above, right ventricle is mildly enlarged with normal contractility 3. Abnormal Lexiscan Myoview study suggestive of multivessel coronary artery disease. Electronically signed by : Esteban Alejandro MD 01/14/2022 10:06:00
--- NOTE | 2022-01-13 07:02 | CA_ITS ---
APPROVED REPORT Exam: Pharmacologic Technologist: Maren Vo, Ht: 4 ft 7 in Wt: 143 lbs BSA: 1.52 m2 HR: 53 bpm BP: 139/41 mmHg Rhythm: SINUS RIKA, PACS, PVCS Indications: CP Medical History Medical History: HTN, Hyperlipidemia Medications: Levothyroxine,,,,, Aspirin,,,,, Atorvastatin,,,,, Carvedilol,,,,, TicaAGRELOR,,,,, TrULicity,,,,, Sacubitril-Valsartan,,,,, Allergies: No known drug allergies Cardiac Risk Factors: HTN, Hyperlipidemia Stress Test Details Test: LEXISCAN HR Resting HR: 55 bpm Max Heart Rate (APMHR): 142.303212 bpm Max HR Achieved: 82 bpm Target HR (85% APMHR): 120.933980 bpm % of APMHR: 57.75 Recovery HR: 66 bpm BP Resting BP: 139/41 mmHg Max BP: 139/41 mmHg Recovery BP: 125.0/41.0 mmHg ECG Resting ECG: SINUS RIKA, PACS, PVCS Clinical Exercise duration: 04:06 min Highest Stage Achieved: Stress ECG Conclusion PT HAD BRIEF NAUSEA, FLEETING SHARP CPS, OTHER VAGUE SXS. MODERATELY FREQUENT PAC AND PVCS. NO SIGNIFICANT CHANGES. UNREMARKABLE LEXISCAN STRESS MYOVIEW IMAGES REPORTED SEPARATELY. Test Summary RECOVERY 04:00 . . 66 . 113/ 53 . . Stage 1 01:00 . . 72 . . . . Stage 2 01:00 . . 72 . . . . Stage 3 01:00 . . 68 . 125/ 56 . . Stage 4 01:00 . . 64 . 106/ 44 . . Stage 4 01:06 . . 66 . 106/ 44 . Stop exercise at 04:06 RECOVERY 01:00 . . 58 . 115/ 51 . . RECOVERY 02:00 . . 59 . 115/ 51 . . RECOVERY 03:00 . . 64 . 113/ 53 . . RECOVERY 04:00 . . 66 . 113/ 53 . . RECOVERY 05:00 . . 66 . 117/ 44 . . RECOVERY 06:00 . . 56 . 125/ 41 . . RECOVERY 06:10 . . 58 . 125/ 41 . . Electronically signed by : Esteban Alejandro MD 01/14/2022 10:02:44
--- NOTE | 2022-01-13 07:02 | CA_ITS ---
APPROVED REPORT EXAM: Comprehensive 2D, Doppler, and color-flow Echocardiogram Cfd Engineer: Yamel Chaves, JOSELYN, RVS Ht: 5 ft 5 in Wt: 143lbs BSA: 1.72 BP: 126/74 mmHg Indications: Afib, MR, Angina, CAD, CP during exam 2D Dimensions IVSd 1.20 cm LVEF (Visual) 55.10 % PWd 1.01 cm LA Volume 98.50 mL LVDd 4.72 cm LA Volume Index 57.30 mL/m2 (M/F) 16-34 LVDs 3.37 cm Aortic Root 2.92 cm Left Atrium 4.77 cm LVOT 2.04 cm (M/F) 1.5-2.5 M-Mode Dimensions LA Diam 4.62 cm (1.9-4.0) LVDd 5.33 cm (3.5-5.7) Ao Diam 3.19 cm (2.0-3.7) LVDs 3.76 cm (3.5-5.7) EF (Teich) 55.90% EPSs 0.64 cm FS 29.50% EDV (Teich) 137.10 mL TAPSE 2.59 (<1.7) ESV (Teich) 60.40 mL LV Diastology E Decel Time 373.00 (160-240 msec) E/A Ratio 0.79 MED E' 6.00 (< 7 cm/sec) MED A' 9.40 cm/s E'/MED E' Ratio 13.02 (>14) LAT E' 6.80 (<10 cm/sec) LAT A' 8.80 cm/s E/LAT E' Ratio 11.49 (>14) Aortic Valve LVOT Max 88.00 (70-110 cm/s) LVOT VTI 26.20 cm AoV Peak Anjel. 161.00 (50-130 cm/s) AO Peak GR. 10.40 mmHg AO Mean GR. 5.20 (<5 mmHg) AO VTI 44.89 (18-25 cm) EDER (VTI) 1.91 (2.5-4.5 cm2) Mitral Valve MV A Velocity 99.00 (40-130 cm/s) E/A Ratio 0.79 MV Decel. Time 373.00 (160-240 ms) MV Mean Gr. 1.70 (<2mmHg) MV PHT 83.00 ms Pulmonary Valve PV Peak Velocity 82.00 (50-150 cm/s) Tricuspid Valve TR P. Velocity 244.00 cm/s RAP Estimate 10.00 mmHg RVSP 33.80 mmHg Left Ventricle Left atrium is moderately enlarged, left ventricle is normal size, mild concentric left ventricular hypertrophy, estimated ejection fraction 55% with no regional wall motion abnormality, grade 1 diastolic dysfunction seen without tissue Doppler evidence of raise left atrial pressure. Right Ventricle Right atrium and right ventricle are mildly enlarged with normal contractility. Aortic Valve Aortic valve is minimally thickened and fibrosed there is no aortic stenosis or aortic insufficiency. Mitral Valve Mitral valve has mitral and calcification, leaflets are minimally thickened, there is no mitral stenosis, there is mild mitral regurgitation. Tricuspid Valve Tricuspid valve grossly normal, there is mild tricuspid regurgitation, tricuspid regurgitation jet velocity is inadequate for calculation of the right ventricular systolic pressure. Pulmonic Valve Pulmonic valve is poorly visualized. Great Vessels Aortic root is normal size. Inferior vena cava is poorly visualized. Pericardium No significant pericardial effusion noted. Conclusion 1. Moderately enlarged left atrium, normal left ventricular size, mild concentric left ventricular hypertrophy, estimated ejection fraction 55% with no regional wall motion abnormality, grade 1 diastolic dysfunction seen without tissue Doppler evidence of raise left atrial pressure. 2. Mild mitral and tricuspid regurgitation. 3. No significant pericardial effusion noted. 4. Inferior vena cava is poorly visualized. Electronically signed by : Esteban Alejandro MD 01/14/2022 15:30:10
== END ==
PROVIDERS: PCP Family Medicine; Visit Provider Physician Assistant
DX: E78.2 Mixed hyperlipidemia (principal); I34.0 Nonrheumatic mitral (valve) insufficiency; I48.0 Paroxysmal atrial fibrillation; R07.89 Other chest pain; R11.0 Nausea; R51.9 Headache, unspecified; I20.8 Other forms of angina pectoris
CPT/HCPCS: 78452; 93017; 93306; A9502; J2785

== ENCOUNTER → 2022-04-20 15:00 | Outpatient (CLI) | payer MEDICARE, SELFPAY ==
[2022-04-20 12:40] LABS: Basophils # 0.1 K/mm3 (0-0.2); Basophils % 1.7 % (0.1-2.0); Eosinophils # 0.2 K/mm3 (0.0-0.4); Eosinophils % 3.8 % (0.1-12.0); Hemoglobin 11.4 g/dL (12.2-16.2); Lymphocytes # 1.2 K/mm3 (0.7-4.5); Lymphocytes % 26.7 % (10-50); Mean Corpuscular HGB Conc 33.4 g/dL (31.8-35.4); Mean Corpuscular Hemoglobin 30.3 pg (27.0-31.2); Mean Corpuscular Volume 90.8 fl (81-99); Mean Platelet Volume 9.1 fl (7.4-10.4); Monocytes # 0.3 K/mm3 (0.1-1.0); Monocytes % 5.7 % (1.7-9.3); Neutrophils # 2.7 K/mm3 (1.8-7.8); Neutrophils % 62.1 % (37.0-80.0); Platelet Count 146 K/mm3 (142-424); Red Blood Count 3.75 M/mm3 (4.20-5.40); Red Cell Distribution Width 15.5 % (11.5-17.5); White Blood Count 4.4 K/mm3 (4.8-10.8)
[2022-04-20 12:46] LABS: Chloride 102 mmol/L (98-107); Potassium 4.2 mmoL/L (3.5-5.1); Sodium 139 mmol/L (136-145)
[2022-04-20 12:49] LABS: Alanine Aminotransferase 27 U/L (12-78); Albumin Level 3.8 g/dl (3.5-5.0); Alkaline Phosphatase 92 U/L (38-126); Anion Gap 12.2 mEq/L (5-15); Aspartate Amino Transferase 39 U/L (14-36); Bilirubin,Indirect 0.3 mg/dL (0.0-0.9); Bilirubin,Total 0.3 mg/dl (0.2-1.3); Bilirubin,Unconjugated 0.4 mg/dL (0.0-1.1); Blood Urea Nitrogen 16 mg/dl (7-17); Calcium 9.3 mg/dl (8.4-10.2); Carbon Dioxide 29 mmol/L (22.0-30.0); Chol/HDL Ratio 1.7 (1-3.5); Cholesterol 112 mg/dl (140-200); Estimated Glomerular Filt Rate 119 ml/min (>60); GFR (African American) 144 ML/MIN (>60); Glucose 132 mg/dl (74-100); HDL Cholesterol 66 mg/dl (40-60); Total Protein,Serum 6.5 g/dl (6.3-8.2); Triglycerides 48 mg/dl (30-150); VLDL Cholesterol 10 mg/dL (0-40)
[2022-04-20 13:03] LABS: Direct LDL Cholesterol < 30.00 mg/dL (100-129)
[2022-04-20 13:20] LABS: Thyroid Stimulating Hormone 1.38 uIU/mL (0.465-4.68)
[2022-04-20 14:18] LABS: Free T4 (Free Thyroxine) 1.27 ng/dl (0.78-2.19)
== END ==
PROVIDERS: PCP Physician Assistant; Visit Provider Physician Assistant
DX: E11.9 Type 2 diabetes mellitus without complications (principal); E78.2 Mixed hyperlipidemia; I25.118 Atherosclerotic heart disease of native coronary artery with other forms of angina pectoris; I34.0 Nonrheumatic mitral (valve) insufficiency; I48.0 Paroxysmal atrial fibrillation; I63.9 Cerebral infarction, unspecified; R06.00 Dyspnea, unspecified; I11.9 Hypertensive heart disease without heart failure; Z79.84 Long term (current) use of oral hypoglycemic drugs
CPT/HCPCS: 36415; 80048; 80061; 80076; 84439; 84443; 85025

== ENCOUNTER 2023-10-30 07:28 | Outpatient (CLI) | payer MEDICARE, SELFPAY ==
--- NOTE | 2023-10-30 07:32 | CA_ITS ---
APPROVED REPORT EXAM: Comprehensive 2D, Doppler, and color-flow Echocardiogram Project Economist: Erica Olivares RDCS Ht: 5 ft 5 in Wt: 138lbs BSA: 1.69 BP: 126/74 mmHg Indications: CP, CAD, DM H/O AF M-Mode Dimensions RVDd 1.19 cm (0.9-2.6) LA Diam 3.73 cm (1.9-4.0) LVDd 5.43 cm (3.5-5.7) LVDs 3.63 cm (3.5-5.7) IVSd 0.52 cm (0.6-1.1) PWd 0.61 cm (0.6-1.1) EF (Teich) 61.20% FS 33.10% EDV (Teich) 143.10 mL ESV (Teich) 55.50 mL LV Diastology E Decel Time 223 (160-240 msec) E/A Ratio 0.7 Mitral Valve MV E Max Anjel. 65.0 (40-130 cm/s) MV A Velocity 87.0 (40-130 cm/s) E/A Ratio 0.74 MV PHT 65.0 ms Tricuspid Valve TR P. Velocity 291.00 cm/s RAP Estimate 10.00 mmHg RVSP 44.00 mmHg Left Ventricle The left ventricle is normal size. The left ventricular systolic function is low normal. Proximal septal thickening is noted. There is normal LV segmental wall motion. Diastolic function is indeterminate. LVEF is 50%. Right Ventricle The right ventricle is normal size. The right ventricular systolic function is normal. Atria The left atrium is mildly dilated. The right atrium size is normal. There is no Doppler evidence of interatrial shunt. Aortic Valve The aortic valve is mildly thickened. There is no aortic valvular stenosis. Mild aortic regurgitation. Mitral Valve The mitral valve leaflets are mildly thickened. No evidence of mitral valve stenosis. Mild mitral regurgitation. Tricuspid Valve The tricuspid valve leaflets are thin and pliable. Mild tricuspid regurgitation. RVSP is 30-35 mmHg. Pulmonic Valve The pulmonary valve is normal in structure. Trace pulmonic regurgitation. Great Vessels The aortic root is normal in size. The ascending aorta is not well-visualized. IVC is normal in size and collapses >50% with inspiration. Pericardium There is no pericardial effusion. Other Information Study Quality: Fair Conclusion Low normal LV systolic function. Normal RV size and function. Mild LA dilation. Mild AI, mild MR, mild TR. RVSP is 30-35 mmHg. Electronically signed by : Laurita Salazar MD 10/31/2023 22:52:36
== END 2023-10-30 23:59 ==
LOC: RT 07:29
PROVIDERS: Visit Provider Physician Assistant
DX: R07.9 Chest pain, unspecified (principal); I25.10 Atherosclerotic heart disease of native coronary artery without angina pectoris; E11.9 Type 2 diabetes mellitus without complications
CPT/HCPCS: 93306

== ENCOUNTER 2023-11-17 10:32 | Outpatient (CLI) | payer MEDICARE, SELFPAY ==
[2023-11-18 07:41] LABS: Hepatitis B Core Antibody, IgM Negative (Negative)
== END 2023-11-17 23:59 | disposition home or self-care (01) ==
LOC: LAB 10:34
PROVIDERS: PCP Internal Medicine; Visit Provider Psychiatry & Neurology Neurology
DX: G35 Multiple sclerosis (principal)
CPT/HCPCS: 36415

== ENCOUNTER 2025-01-16 10:38 | Outpatient (RCR) | payer MEDICARE, SELFPAY | END 2025-01-16 23:59 | disposition home or self-care (01) | LOC: PT 10:38 | PROVIDERS: PCP Internal Medicine; Visit Provider Psychiatry & Neurology Neurology | DX: R26.9 Unspecified abnormalities of gait and mobility (principal) | CPT/HCPCS: 97161 ==

== ENCOUNTER 2025-02-20 15:00 | Outpatient (RCR) | payer MEDICARE, SELFPAY | END 2025-02-20 23:59 | disposition home or self-care (01) | LOC: PT 15:00 | PROVIDERS: PCP Internal Medicine; Visit Provider Psychiatry & Neurology Neurology | DX: R26.9 Unspecified abnormalities of gait and mobility (principal) | CPT/HCPCS: 97110; 97116; 97530 ==

== ENCOUNTER 2025-03-20 14:00 | Outpatient (RCR) | payer MEDICARE, SELFPAY | END 2025-03-20 23:59 | disposition home or self-care (01) | LOC: PT 14:00 | PROVIDERS: PCP Internal Medicine; Visit Provider Psychiatry & Neurology Neurology | DX: R26.9 Unspecified abnormalities of gait and mobility (principal) | CPT/HCPCS: 97110; 97116; 97140; 97530 ==

== ENCOUNTER 2025-04-21 14:00 | Outpatient (RCR) | payer MEDICARE, SELFPAY | END 2025-04-21 23:59 | disposition home or self-care (01) | LOC: PT 14:00 | PROVIDERS: PCP Internal Medicine; Visit Provider Psychiatry & Neurology Neurology | DX: R26.9 Unspecified abnormalities of gait and mobility (principal) | CPT/HCPCS: 97110; 97116; 97530 ==

== ENCOUNTER 2025-05-20 15:00 | Outpatient (RCR) | payer MEDICARE, SELFPAY | END 2025-05-20 23:59 | disposition home or self-care (01) | LOC: PT 15:00 | PROVIDERS: PCP Internal Medicine; Visit Provider Psychiatry & Neurology Neurology | DX: R26.9 Unspecified abnormalities of gait and mobility (principal) | CPT/HCPCS: 97110; 97116; 97140; 97530 ==

== ENCOUNTER 2025-06-11 16:00 | Outpatient (RCR) | payer MEDICARE, SELFPAY | END 2025-06-11 23:59 | disposition home or self-care (01) | LOC: PT 16:00 | PROVIDERS: PCP Internal Medicine; Visit Provider Psychiatry & Neurology Neurology | DX: R26.9 Unspecified abnormalities of gait and mobility (principal); M25.559 Pain in unspecified hip | CPT/HCPCS: 97110; 97116; 97530 ==